=== PATIENT | male | born 1985 | race Two or more races ===

== ENCOUNTER 2018-01-23 10:03 | Emergency (ER) | payer MEDICAID, OTHER ==
[~2018-01-23] VITALS: Ht 167.6 cm; Wt 72.4 kg
[2018-01-23] MEDS ORDERED: METHOCARBAMOL 750 MG TABLET PO ONE (11:30)
[2018-01-23] MEDS ORDERED: IBUPROFEN 200 MG TABLET PO ONE (11:30)
[2018-01-23] MEDS ORDERED: IBUPROFEN 600 MG TABLET ONE (11:43)
[2018-01-23] MEDS ORDERED: METHOCARBAMOL 750 MG TABLET ONE (11:43)
[2018-01-23 13:21] VITALS: BP 106/67
== END 2018-01-23 13:30 | disposition home or self-care (01) ==
LOC: ED 13:15
DX: S29.012A Strain of muscle and tendon of back wall of thorax, initial encounter (principal); Z87.442 Personal history of urinary calculi; X58.XXXA Exposure to other specified factors, initial encounter; Y93.89 Activity, other specified; Y92.89 Other specified places as the place of occurrence of the external cause; Y99.8 Other external cause status
CPT/HCPCS: 71046; 93005; 99283

== ENCOUNTER 2018-04-28 10:34 | Emergency (ER) | payer MEDICAID ==
[~2018-04-28] VITALS: Ht 167.6 cm; Wt 74.0 kg
--- NOTE | 2018-04-28 11:10 | NUR ---
PT TO ED FOR LOWER LEFT ABD PAIN X4 DAYS. PT ALSO REPORTS PAINFUL URINATION. CONNECTED TO MONITORS. VSS. EDMD ASSESSMENT COMPLETE AND ORDERS RECEIVED. LABS DRAWN. UA COLLECTGED AND SENT. AWAITING CT AND RESULTS AT THIS TIME.
[2018-04-28 11:20] LABS: BASOPHILS # (AUTO) 0.03 x10^3/uL (0-0.1); BASOPHILS % (AUTO) 0 % (0-1); EOSINOPHILS # (AUTO) 0.15 x10^3/uL (0-0.4); EOSINOPHILS % (AUTO) 2 % (1-7); LYMPHOCYTES # (AUTO) 2.54 x10^3/uL (1-3.4); LYMPHOCYTES % (AUTO) 36 % (22-44); MD NO; MEAN CORPUSCULAR HGB CONC 33.5 g/dL (33.2-36.2); MEAN CORPUSCULAR VOLUME 89.7 fL (81-97); MONOCYTES # (AUTO) 0.36 x10^3/uL (0.2-0.8); MONOCYTES % (AUTO) 5 % (2-9); NEUTROPHILS % (AUTO) 57 % (42-75); PLATELET COUNT 280 x10^3/uL (130-400); RED BLOOD COUNT 4.93 x10^6/uL (4.38-5.82); RED CELL DISTRIBUTION WIDTH 13.7 % (9.4-14.8)
[2018-04-28 11:32] LABS: ALBUMIN 4.3 g/dL (3.4-5.0); ANION GAP 5 mmol/L (5-15); CALCIUM 9.2 mg/dL (8.5-10.1); CHLORIDE 108 mmol/L (98-107)
[2018-04-28 11:35] LABS: ALANINE AMINOTRANSFERASE 68 U/L (12-78); ALKALINE PHOSPHATASE 101 U/L (45-117); BILIRUBIN,TOTAL 0.5 mg/dL (0.2-1.0); CREATININE 1.08 mg/dL (0.7-1.3); TOTAL PROTEIN 8.3 g/dL (6.4-8.2)
[2018-04-28 11:39] LABS: MICROSCOPIC AUTO
[2018-04-28 11:47] LABS: CULTURE INDICATED? NO
[2018-04-28 11:48] VITALS: BP 116/73
--- NOTE | 2018-04-28 11:48 | NUR ---
CT COMPLETE. PT RESTING IN ROOM. VSS. NO NEEDS AT THIS TIME. CALL LIGHT WITHIN REACH.
--- NOTE | 2018-04-28 11:54 | NUR ---
all results back at this time. chart up for recheck.
== END 2018-04-28 12:33 | disposition home or self-care (01) ==
LOC: ED 12:21
DX: N20.1 Calculus of ureter (principal); Z87.442 Personal history of urinary calculi
CPT/HCPCS: 36415; 74176; 80053; 81001; 83690; 85025; 99284

== ENCOUNTER 2018-08-21 08:13 | Emergency (ER) | payer MEDICAID ==
[~2018-08-21] VITALS: Ht 167.6 cm; Wt 69.9 kg
[2018-08-21] MEDS ORDERED: KETOROLAC 30 MG/1 ML ONE (08:40)
[2018-08-21 09:00] LABS: BASOPHILS # (AUTO) 0.02 x10^3/uL (0-0.1); BASOPHILS % (AUTO) 0 % (0-1); EOSINOPHILS # (AUTO) 0.16 x10^3/uL (0-0.4); EOSINOPHILS % (AUTO) 3 % (1-7); LYMPHOCYTES # (AUTO) 2.12 x10^3/uL (1-3.4); LYMPHOCYTES % (AUTO) 39 % (22-44); MD NO; MEAN CORPUSCULAR HEMOGLOBIN 30.1 pg (27.5-34.5); MEAN CORPUSCULAR VOLUME 91.4 fL (81-97); MEAN PLATELET VOLUME 8.1 fL (7.4-10.4); MONOCYTES # (AUTO) 0.33 x10^3/uL (0.2-0.8); MONOCYTES % (AUTO) 6 % (2-9); NEUTROPHILS # (AUTO) 2.76 x10^3/uL (1.8-6.8); NEUTROPHILS % (AUTO) 51 % (42-75); PLATELET COUNT 241 x10^3/uL (130-400); RED BLOOD COUNT 4.74 x10^6/uL (4.38-5.82); RED CELL DISTRIBUTION WIDTH 13.9 % (9.4-14.8)
[2018-08-21] MEDS ORDERED: SODIUM CHLORIDE FLUSH 10ML SYR IVF ONE (09:00)
[2018-08-21] MEDS ORDERED: KETOROLAC 30 MG/1 ML IVPush ONE (09:00)
[2018-08-21 09:08] LABS: ALBUMIN 4.4 g/dL (3.4-5.0); ANION GAP 6 mmol/L (5-15); CALCIUM 9.1 mg/dL (8.5-10.1); CHLORIDE 109 mmol/L (98-107); CREATININE 0.92 mg/dL (0.7-1.3)
[2018-08-21 09:09] LABS: MICROSCOPIC NOT IND
[2018-08-21 09:11] LABS: CULTURE INDICATED? NO
--- NOTE | 2018-08-21 09:17 | NUR ---
PT AWAITING US, NO NEEDS AT THIS TIME, SID
--- NOTE | 2018-08-21 09:43 | NUR ---
PT RETURNED FROM US IN NAD
[2018-08-21 10:30] VITALS: BP 110/60
== END 2018-08-21 10:33 | disposition home or self-care (01) ==
LOC: ED 08:40
DX: G89.29 Other chronic pain (principal); R10.32 Left lower quadrant pain
CPT/HCPCS: 36415; 76770; 80048; 81003; 82040; 85025; 87491; 87591; 96374; 99284; J1885